=== PATIENT | female | born 1940 | race Caucasian/White ===

== ENCOUNTER → 2018-09-19 10:16 | Outpatient (CLI) | payer MEDICARE, SELFPAY ==
[2018-09-19 11:06] LABS: Hematocrit 42.7 % (36-46); Hemoglobin 14.3 g/dL (12.0-16.0); Mean Corpuscular HGB Conc 33.4 % (30-36); Mean Corpuscular Volume 92.7 fL (80-100); Platelet Count 254 X10^3/uL (150-400); Red Blood Cell Count 4.61 X10^6/uL (4.0-5.2); Red Cell Distribution Width 13.2 % (11.6-14.8); White Blood Cell Count 5.8 X10^3/uL (4.5-11.0)
[2018-09-19 11:52] LABS: Alanine Aminotransferase 20 IU/L (9-52); Albumin 4.5 g/dL (3.5-5.0); Albumin Globulin Ratio 1.7 (1.0-2.8); Alkaline Phosphatase 85 U/L (38-126); Aspartate Aminotransferase 24 IU/L (14-36); BUN Creatinine Ratio 21.7 (6-22); Bilirubin Total 0.9 mg/dL (0.2-1.3); Blood Urea Nitrogen 13 mg/dL (7-17); Calcium 9.6 mg/dL (8.4-10.2); Carbon Dioxide 24 mmol/L (22-32); Chloride 107 mmol/L (98-107); Cholesterol 219 mg/dL (140-199); Estimated Glomerular Filt Rate > 60.0 mL/min (>60); Globulin 2.6 g/dL (1.7-4.1); Glucose 108 mg/dL (80-110); HDL Cholesterol 72 mg/dL (40-60); HEMOLYSIS < 15 (0-50); LDL Cholesterol Calculated 126 mg/dL (<100); Potassium 4.1 mmol/L (3.4-5.1); Sodium 141 mmol/L (137-145); Total Protein 7.1 g/dL (6.3-8.2); Triglycerides 105 mg/dL (35-150)
[2018-09-19 15:57] LABS: Creatinine Urine Random 108.6 mg/dL
[2018-09-19 16:01] LABS: Microalbumi Creatinin Ratio Ur 5.5 ug/mg CR (<30); Microalbumin Urine Random 0.6 mg/dL (0-1.6)
== END ==
PROVIDERS: PCP Nurse Practitioner Family; Visit Provider Nurse Practitioner Family
DX: E78.00 Pure hypercholesterolemia, unspecified (principal); I10 Essential (primary) hypertension
CPT/HCPCS: 36415; 80053; 80061; 82043; 82570; 85027

== ENCOUNTER 2018-10-27 13:39 | Outpatient (RCR) | payer MEDICARE, SELFPAY ==
--- NOTE | 2018-10-27 16:45 | PT.OIE ---
Current Diagnoses Cystocele, unspecified (10/27/18) Uterovaginal prolapse, unspecified (10/27/18) Visit Care Team Role Provider Type SADIQ Mcgarry Attending Provider Advanced Sound Assistant Primary Care Provider Specialty: Family Practice Address: [address] [place] [address], [id number] Email: [email or web address] Physical Therapy Initial Evaluation PT-OP-A Visit Information Start: 10/27/18 07:26 Freq: Status: Active Protocol: Document 10/27/18 13:45 AMB (Rec: 10/30/18 07:23 AMB [email or web address]) Out-Patient Physical Therapy Visit Information Visit Information Visit Type Initial Evaluation Visit Start Time 13:45 Visit Stop Time 14:30 Total Visit Minutes 45 Visit Number 1 PT-OP-B Current Condition Start: 10/27/18 07:26 Freq: Status: Active Protocol: Document 10/27/18 13:45 AMB (Rec: 10/30/18 07:31 AMB [email or web address]) Current Condition History of Current Condition Onset Date 1 year ago Current Complaints pelvic heaviness History of Current Condition Tena reports 2 vaginal births with episiotomies, but denies symptoms around that time. Symptoms started after extensive 6 months of coughing . Does report rare urinary leak with supine to sit, but this is not especially bothersome. More bothersome is the feeling that something is falling out. Treatment Goals Patient/Caregiver Goals Decrease falling out feeling Prior Functional Status Baseline Function- ADL's Independent Baseline Function- Mobility Independent Current Functional Impairments (Reported) Functional Limitations- ADL's feeling of falling out especially worse after extended standing Personal Factors Other Personal Factors That May Effect hypertension Therapy/Recovery PT-OP-C Subjective Start: 10/27/18 07:26 Freq: Status: Active Protocol: Document 10/27/18 13:45 AMB (Rec: 10/31/18 16:44 AMB [email or web address]) Patient Questionnaires Pelvic Pain and Urgency/Frequency Patient Symptom Scale Pelvic Pain Score 6 PT-OP-I Pelvic Floor Start: 10/27/18 07:26 Freq: Status: Active Protocol: Document 10/27/18 13:45 AMB (Rec: 10/30/18 07:28 AMB [email or web address]) Pelvic Floor Assessment Urine Pelvic Floor Surgery No Urinary Symptoms Prolapse,Falling Out Feeling/ Heavy Leakage Size Small Other Leakage Causes supine to sit - rare per pt Nocturia 1 Bowel Bowel Surgery No Pelvic Clock Pelvic Clock 12-3 Atrophy Pelvic Clock 9-12 Atrophy Prolapse Cystocele Grade 2 Perineal Descent Resting Absent Bearing Present Contraction Ability Voluntary Contraction Weak Voluntary Relaxation Weak Manual Muscle Testing Left 1 Manual Muscle Testing Right 1 Manual Muscle Testing Anterior 1 Manual Muscle Testing Posterior 1 Muscle Endurance (Seconds) 3 Number of Quick Contractions In 10 3 Seconds Comments Pelvic Floor Comments Pt needed extensive cueing to perform pelvic floor contraction and did tend to compensate with breath hold, gluteals and abs. PT-OP-T Assessment and Plan Start: 10/27/18 07:26 Freq: Status: Active Protocol: Document 10/27/18 13:45 AMB (Rec: 10/31/18 16:44 AMB [email or web address]) Physical Therapy Assessment Rehab Potential Rehabilitation Potential Good Evaluation Complexity Number of Personal Factors/Comorbidities 1-2 Number of Body Systems Impaired 1-2 Clinical Presentation at Evaluation Stable Impairments Impairments Functional Activities Goals Two Impairment HEP Short Term Goal (STG) Tena will be independent with a exercise program for her prolapse. STG Duration 4 weeks One Impairment continence Short Term Goal (STG) Tena will be able to move from supine to sitting without leaking. STG Duration 4 weeks Assistant Auto Center Manager Goal (LTG) Tena will be able to go through her day without needing to splint with toilet paper. LTG Duration 8 weeks Assessment Summary Assessment Pt is presenting with GrII prolapse and significant weakness at the pelvic floor. She reports intermittent urinary leaking especially with supine to stand. She will benefit from PT to instruct her in a program so that she is able to contract her pelvic floor and reduce the abdominal pressure to reduce her symptoms of prolapse. Physical Therapy Plan Frequency and Duration Frequency of Treatment 1x/Week Duration of Treatment 8 weeks Plan of Care Start Date 10/27/18 Plan of Care End Date 12/15/18 Therapeutic Interventions Therapeutic Interventions Home Exercise Program,Manual Therapy,Neuromuscular Re- education,Self-Care/Home Management,Therapeutic Activities,Therapeutic Exercises Modalities Biofeedback,Electric Stimulation Next Visit Focus/Plan Next Note Type Treatment Note Next Visit Plan sEMG and NMES as needed, instruct in HEP
--- NOTE | 2018-10-27 16:46 | PT.OPPOC ---
Current Diagnoses Cystocele, unspecified (10/27/18) Uterovaginal prolapse, unspecified (10/27/18) Visit Care Team Role Provider Type SADIQ Mcgarry Attending Provider Advanced Shoe Stitcher Primary Care Provider Specialty: Family Practice Address: [address] [place] [address], [id number] Email: [email or web address] Plan Of Care PT-OP-T Assessment and Plan Start: 10/27/18 07:26 Freq: Status: Active Protocol: Document 10/27/18 13:45 AMB (Rec: 10/31/18 16:44 AMB [email or web address]) Physical Therapy Assessment Rehab Potential Rehabilitation Potential Good Evaluation Complexity Number of Personal Factors/Comorbidities 1-2 Number of Body Systems Impaired 1-2 Clinical Presentation at Evaluation Stable Impairments Impairments Functional Activities Goals Two Impairment HEP Short Term Goal (STG) Tena will be independent with a exercise program for her prolapse. STG Duration 4 weeks One Impairment continence Short Term Goal (STG) Tena will be able to move from supine to sitting without leaking. STG Duration 4 weeks Shelter Goal (LTG) Tena will be able to go through her day without needing to splint with toilet paper. LTG Duration 8 weeks Assessment Summary Assessment Pt is presenting with GrII prolapse and signficant weakness at the pelvic floor. She reports intermittent urinary leaking especially with supine to stand. She will benefit from PT to instruct her in a program so that she is able to contract her pelvic floor and reduce the abdominal pressure to reduce her symptoms of prolapse. Physical Therapy Plan Frequency and Duration Frequency of Treatment 1x/Week Duration of Treatment 8 weeks Plan of Care Start Date 10/27/18 Plan of Care End Date 12/15/18 Therapeutic Interventions Therapeutic Interventions Home Exercise Program,Manual Therapy,Neuromuscular Re- education,Self-Care/Home Management,Therapeutic Activities,Therapeutic Exercises Modalities Biofeedback,Electric Stimulation Next Visit Focus/Plan Next Note Type Treatment Note Next Visit Plan sEMG and NMES as needed, instruct in HEP Plan of Care Dates Plan of Care Start Date 10/27/18 Plan of Care End Date 12/15/18 Please Sign and Return: I have reviewed this Plan of Care and certify that the skilled therapy services above are required to meet the patient?s needs. Physician Signature Date Printed Name and Credentials Clinical Instructor Signature Printed Name and Credentials
--- NOTE | 2019-01-01 08:07 | PT.OPDS ---
Current Diagnoses Uterovaginal prolapse, unspecified (10/27/18) Visit Care Team Role Provider Type SADIQ Mcgarry Attending Provider Advanced Tunnel Mucker Primary Care Provider Specialty: Family Practice Address: [address] [place] [address], [facility] Email: [email or web address] Visit Number Visit Number 1 Discharge Summary PT-OP-B Current Condition Start: 10/27/18 07:26 Freq: Status: Active Protocol: Document 10/27/18 13:45 AMB (Rec: 10/30/18 07:31 AMB [email or web address]) Current Condition History of Current Condition Onset Date 1 year ago Current Complaints pelvic heaviness History of Current Condition Tena reports 2 vaginal births with episiotomies, but denies symptoms around that time. Symptoms started after extensive 6 months of coughing . Does report rare urinary leak with supine to sit, but this is not especially bothersome. More bothersome is the feeling that something is falling out. Treatment Goals Patient/Caregiver Goals Decrease falling out feeling Prior Functional Status Baseline Function- ADL's Independent Baseline Function- Mobility Independent Current Functional Impairments (Reported) Functional Limitations- ADL's feeling of falling out especially worse after extended standing Personal Factors Other Personal Factors That May Effect hypertension Therapy/Recovery PT-OP-C Subjective Start: 10/27/18 07:26 Freq: Status: Active Protocol: Document 10/27/18 13:45 AMB (Rec: 10/31/18 16:44 AMB [email or web address]) Patient Questionnaires Pelvic Pain and Urgency/Frequency Patient Symptom Scale Pelvic Pain Score 6 PT-OP-I Pelvic Floor Start: 10/27/18 07:26 Freq: Status: Active Protocol: Document 10/27/18 13:45 AMB (Rec: 10/30/18 07:28 AMB [email or web address]) Pelvic Floor Assessment Urine Pelvic Floor Surgery No Urinary Symptoms Prolapse,Falling Out Feeling/ Heavy Leakage Size Small Other Leakage Causes supine to sit - rare per pt Nocturia 1 Bowel Bowel Surgery No Pelvic Clock Pelvic Clock 12-3 Atrophy Pelvic Clock 9-12 Atrophy Prolapse Cystocele Grade 2 Perineal Descent Resting Absent Bearing Present Contraction Ability Voluntary Contraction Weak Voluntary Relaxation Weak Manual Muscle Testing Left 1 Manual Muscle Testing Right 1 Manual Muscle Testing Anterior 1 Manual Muscle Testing Posterior 1 Muscle Endurance (Seconds) 3 Number of Quick Contractions In 10 3 Seconds Comments Pelvic Floor Comments Pt needed extensive cueing to perform pelvic floor contraction and did tend to compensate with breath hold, gluteals and abs. PT-OP-T Assessment and Plan Start: 10/27/18 07:26 Freq: Status: Active Protocol: Document 01/01/19 08:04 AMB (Rec: 01/01/19 08:06 AMB [email or web address]) Physical Therapy Assessment Assessment Summary Assessment Tena attended her initial evaluation and has not returned since. She is therefore discharged, please see initial evaluation for all information. Physical Therapy Plan Discharge Physical Therapy Discharge Reasons No Longer Attending PT
== END 2018-10-27 14:39 ==
LOC: PHYS 13:39
PROVIDERS: PCP Nurse Practitioner Family; Visit Provider Nurse Practitioner Family
DX: N81.4 Uterovaginal prolapse, unspecified (principal)
CPT/HCPCS: 97161

== ENCOUNTER → 2020-04-17 11:58 | Outpatient (CLI) | payer OTHER, SELFPAY ==
[2020-04-17 12:31] LABS: Hematocrit 44.6 % (36-46); Hemoglobin 14.7 g/dL (12.0-16.0); Mean Corpuscular Hemoglobin 30.5 PG (26-34); Mean Corpuscular Volume 92.5 fL (80-100); Platelet Count 256 X10^3/uL (150-400); Red Blood Cell Count 4.82 X10^6/uL (4.0-5.2); Red Cell Distribution Width 13.5 % (11.6-14.8); White Blood Cell Count 6.3 X10^3/uL (4.5-11.0)
[2020-04-17 12:57] LABS: Alanine Aminotransferase 15 IU/L (<35); Albumin 4.3 g/dL (3.5-5.0); Albumin Globulin Ratio 1.7 (1.0-2.8); Alkaline Phosphatase 76 U/L (38-126); Aspartate Aminotransferase 24 IU/L (14-36); BUN Creatinine Ratio 15.9 (6-22); Bilirubin Total 0.8 mg/dL (0.2-1.3); Blood Urea Nitrogen 11 mg/dL (7-17); Calcium 9.6 mg/dL (8.4-10.2); Carbon Dioxide 26 mmol/L (22-32); Chloride 107 mmol/L (98-107); Cholesterol 209 mg/dL (140-199); Estimated Glomerular Filt Rate > 60.0 mL/min (>60); Globulin 2.6 g/dL (1.7-4.1); Glucose 125 mg/dL (80-110); HDL Cholesterol 68 mg/dL (40-60); HEMOLYSIS < 15 (0-50); LDL Cholesterol Calculated 117 mg/dL (<100); Sodium 140 mmol/L (137-145); Total Protein 6.9 g/dL (6.3-8.2); Triglycerides 120 mg/dL (35-150)
== END ==
PROVIDERS: PCP Nurse Practitioner Family; Referring Provider Nurse Practitioner Family; Visit Provider Nurse Practitioner Family
DX: E78.00 Pure hypercholesterolemia, unspecified (principal); I10 Essential (primary) hypertension
CPT/HCPCS: 36415; 80053; 80061; 85027

== ENCOUNTER → 2020-04-29 12:30 | Outpatient (CLI) | payer OTHER, SELFPAY ==
[2020-04-29 14:30] LABS: Hemoglobin A1C% w Est Avg Glu 5.6 % (4.0-6.0)
== END ==
PROVIDERS: PCP Nurse Practitioner Family; Referring Provider Nurse Practitioner Family; Visit Provider Nurse Practitioner Family
DX: R73.09 Other abnormal glucose (principal)
CPT/HCPCS: 36415; 83036

== ENCOUNTER → 2021-07-15 15:01 | Outpatient (CLI) | payer OTHER, SELFPAY ==
--- NOTE | 2021-07-15 15:10 | DI.RAD.S_ITS ---
PROCEDURE: XR FOOT LT MIN 3V INDICATIONS: swelling ankle TECHNIQUE: 3 views of the foot were acquired. COMPARISON: None. FINDINGS: Bones: No acute fractures or dislocations. No suspicious bony lesions. Old 5th metatarsal neck fracture. Mild degenerative joint disease at the 1st metatarsophalangeal joint and multiple interphalangeal joints. Osteopenia. Soft tissues: No tibiotalar joint effusion. Achilles tendon appears normal. IMPRESSION: 1. No acute abnormalities. 2. Old 5th metatarsal neck fracture. 3. Mild degenerative joint disease. 4. Osteopenia. Dictated by: Julio C Gonzales M.D. on 07/15/2021 at 16:44 Approved by: Julio C Gonzales M.D. on 07/15/2021 at 16:46
--- NOTE | 2021-07-15 15:10 | DI.RAD.S_ITS ---
PROCEDURE: XR ANKLE LT MIN 3V INDICATIONS: swelling ankle TECHNIQUE: 3 views of the ankle were acquired. COMPARISON: None. FINDINGS: Bones: No fractures or dislocations. Ankle mortise is normally aligned. No suspicious bony lesions. Soft tissues: No tibiotalar joint effusion. Achilles tendon appears normal. IMPRESSION: No evidence acute bony abnormality of the left ankle. If clinical suspicion and/or symptoms persist, further assessment with repeat plain films, or advanced imaging (e.g., CT, MRI, or bone scan) may be helpful for further assessment. Dictated by: Brian Royal M.D. on 07/15/2021 at 16:22 Approved by: Brian Royal M.D. on 07/15/2021 at 16:26
== END ==
PROVIDERS: PCP Nurse Practitioner Family; Referring Provider Physician Assistant; Visit Provider Physician Assistant
DX: M19.072 Primary osteoarthritis, left ankle and foot (principal); M85.872 Other specified disorders of bone density and structure, left ankle and foot; M25.472 Effusion, left ankle; S90.30XA Contusion of unspecified foot, initial encounter
CPT/HCPCS: 73610; 73630

== ENCOUNTER 2021-07-20 00:05 | Emergency (ER) | payer OTHER, SELFPAY ==
[2021-07-20] VITALS (15 sets, daily range): BP systolic 162–246; BP diastolic 74–112; PULSE 75–119; RESP 16–32; TEMP 36.7; O2SAT 97–99
--- NOTE | 2021-07-20 00:15 | DI.RAD.S_ITS ---
PROCEDURE: XR CHEST 1V INDICATIONS: chest pain TECHNIQUE: One view of the chest was acquired. COMPARISON: [facility], , CHEST 1 VIEW, 02/05/2017, 16:18. FINDINGS: Surgical changes and devices: None. Lungs and pleura: Lungs are clear. No pleural effusions or pneumothorax. Low lung volumes accentuate pulmonary interstitium and heart size. Mediastinum: Mediastinal contours appear normal. Heart size is normal. Bones and chest wall: No suspicious bony lesions. Overlying soft tissues appear unremarkable. IMPRESSION: No acute cardiopulmonary findings Approved by: Jordy Hicks M.D. on 07/20/2021 at 0:15
--- NOTE | 2021-07-20 00:24 | PC.NURSE ---
Pt reports dizziness with her HTN. Took 2 doses of 2.5mg of amlodipine EDUCATIONAL ADVISOR to attempt to lower her BP at home
[2021-07-20 00:29] LABS: Add Manual Diff / Slide Review NO; Basophils Absolute Auto 0 /uL (0-100); Basophils Percent Auto 0.4 % (0-2); Eosinophils Absolute Auto 100 /uL (0-450); Eosinophils Percent Auto 1.9 % (2-4); Hematocrit 45.1 % (36-46); Lymphocytes Absolute Auto 3000 /uL (1100-4500); Lymphocytes Percent Auto 38.5 % (25-40); Mean Corpuscular HGB Conc 33.3 % (30-36); Mean Corpuscular Hemoglobin 30.6 PG (26-34); Monocytes Absolute Auto 700 /uL (0-900); Monocytes Percent Auto 9.2 % (3-14); Neutrophils Absolute Auto 3900 /uL (1500-7000); Platelet Count 247 X10^3/uL (150-400); Red Cell Distribution Width 13.5 % (11.6-14.8); White Blood Cell Count 7.8 X10^3/uL (4.5-11.0)
--- NOTE | 2021-07-20 00:31 | ED_ITS ---
HPI - General Adult General Chief complaint: Hypertension Stated complaint: high blood pressure Time Seen by Provider: 07/20/21 00:11 Source: patient Mode of arrival: Ambulatory Limitations: no limitations History of Present Illness HPI narrative: Patient is a 80-year-old female. History of hypertension. Is on amlodipine and losartan is here for evaluation of high blood pressure. She states she takes her blood pressure multiple times a day. At noon today she took her blood pressure and the systolic was in the 160s. States that normally she is in the 130s. She has taken her blood pressure medicines today. She stated that she took a dose of amlodipine and losartan approximately 30 minutes prior to arrival here in the ER. She denies chest pain. No shortness of breath. She does have a history of a pulmonary embolism. Denies any headaches. Does feel somewhat foggy in her head. No balance issues. She contacted her primary doctor earlier today after the elevated blood pressure at noon and was told that if her systolic blood pressure was greater than 180 she should come to the emergency department for evaluation. Related Data Previous Rx's Medication Instructions Recorded amlodipine 5 mg tablet 5 mg PO DAILY #90 tab 05/27/21 aspirin 81 mg tablet,delayed 81 mg PO DAILY #90 tab 05/27/21 release losartan 25 mg tablet 25 mg PO BID #270 tab 05/27/21 vitamin B complex (B 1 tab PO DAILY #90 tab 05/27/21 Complex-Vitamin B12) Allergies Allergy/AdvReac Type Severity Reaction Status Date / Time lisinopril Allergy Severe Coughing Verified 04/29/20 11:58 Penicillins [PENICILLINS] Allergy Mild RASH Unverified 04/29/20 11:58 Review of Systems Constitutional Constitutional: Denies headache(s) Eyes Eyes: Reports system reviewed and no additional complaints, except as documented ENT Ears, Nose, Mouth, and Throat: Denies headache(s) Cardiovascular Cardiovascular: Reports system reviewed and no additional complaints, except as documented Respiratory Respiratory: Reports system reviewed and no additional complaints, except as documented Gastrointestinal Gastrointestinal: Reports system reviewed and no additional complaints, except as documented Musculoskeletal Musculoskeletal: Reports system reviewed and no additional complaints, except as documented Integumentary/Breasts Skin/Breast: Reports system reviewed and no additional complaints, except as d ocumented Neurologic Neurologic: Denies headache(s) Hematologic/Lymphatic On Anticoagulants: No Patient History Medical History Elevated fasting blood sugar (04/2020) Right bundle branch block Family History Child Dysautonomia Child Hirschsprung's disease Grandmother Stroke Mother Stroke Social History Smoking Status: Never smoker second hand exposure: No alcohol intake: current substance use type: does not use Smoking Status: Never smoker Exam Initial Vital Signs Initial Vital Signs: Vital Signs Pulse Rate 119 H 07/20/21 00:12 Blood Pressure 246/112 H 07/20/21 00:12 Pulse Oximetry 97 07/20/21 00:12 Const General: cooperative, comfortable and well developed HENMT Head: normal to inspection and normocephalic Resp Effort & Inspection: normal respiratory effort Auscultation: clear to auscultation bilaterally Cardio Rate: regular rate Rhythm: regular rhythm GI Inspection: normal to inspection Skin Other: Bruising left lower extremity in left foot for which she was evaluated for a couple days ago. Neuro General: patient alert, patient awake and moves all extremities Extrem Other: No pitting edema noted Psych Appearance: grossly normal and well kempt Course Orders Ordered: ED Orders 07/20/21 00:15 XR chest 1V Stat EKG-12 Lead Stat 07/20/21 00:19 Complete Blood Count AUTO DIFF Stat Comprehensive Metabolic Panel Stat Lipase Stat Magnesium Stat Troponin & CK Cardiac Panel Stat 07/20/21 02:28 Troponin I Stat Discontinued Medications Hydralazine HCl (Hydralazine 20 Mg/Ml Vial) 5 mg IV NOW ONE Stop: 07/20/21 01:28 Last Admin: 07/20/21 01:31 Dose: 5 mg Documented by: ASHLEIGH Vital Signs Vital signs: Vital Signs - 8 hr 07/20/21 00:12 07/20/21 00:15 07/20/21 00:29 Temperature 98.1 F Pulse Rate 119 H 114 H 97 H Respiratory Rate 22 19 Blood Pressure 246/112 H 246/112 H 226/101 H Pulse Oximetry 97 97 98 07/20/21 00:30 07/20/21 01:06 07/20/21 01:23 Temperature Pulse Rate 95 H 88 83 Respiratory Rate 17 20 Blood Pressure 197/88 H Pulse Oximetry 99 97 98 07/20/21 01:30 07/20/21 01:31 07/20/21 01:34 Temperature Pulse Rate 79 82 87 Respiratory Rate 23 27 H Blood Pressure 188/84 H 188/84 H Pulse Oximetry 97 98 07/20/21 01:45 07/20/21 01:46 07/20/21 02:00 Temperature Pulse Rate 79 75 Respiratory Rate 16 32 H Blood Pressure 168/79 H 168/79 H 162/74 H Pulse Oximetry 97 97 07/20/21 02:30 07/20/21 02:32 07/20/21 03:00 Temperature Pulse Rate 81 77 79 Respiratory Rate 20 23 18 Blood Pressure 171/85 H 178/86 H Pulse Oximetry 97 97 97 Medical Decision Making Medical Records Medical records reviewed: Yes I reviewed the patient's medical records. Lab Data Lab results reviewed: Yes I reviewed the patient's lab results. Result diagrams: 07/20/21 00:19 07/20/21 00:19 Labs: Lab Results 07/20/21 07/20/21 07/20/21 Range/Units 00:19 00:19 02:28 WBC 7.8 (4.5-11.0) X10^3/uL RBC 4.90 (4.0-5.2) X10^6/uL Hgb 15.0 (12.0-16.0) g/dL Hct 45.1 (36-46) % MCV 92.0 (80-100) fL MCH 30.6 (26-34) PG MCHC 33.3 (30-36) % RDW 13.5 (11.6-14.8) % Plt Count 247 (150-400) X10^3/uL Neut % (Auto) 50.0 (50-75) % Lymph % (Auto) 38.5 (25-40) % Prairie % (Auto) 9.2 (3-14) % Eos % (Auto) 1.9 L (2-4) % Baso % (Auto) 0.4 (0-2) % Neut # (Auto) 3900 (8548-0278) /uL Lymph # (Auto) 3000 (0321-3586) /uL [place] # (Auto) 700 (0-900) /uL Eos # (Auto) 100 (0-450) /uL Baso # (Auto) 0 (0-100) /uL Sodium 140 (137-145) mmol/L Potassium 3.8 (3.4-5.1) mmol/L Chloride 104 (98-107) mmol/L Carbon Dioxide 24 (22-32) mmol/L BUN 15 (7-17) mg/dL Creatinine 0.71 (0.52-1.04) mg/dL Estimated GFR > 60 (>60) mL/min BUN/Creatinine Ratio 21.1 (6-22) Glucose 127 H (80-110) mg/dL Calcium 9.4 (8.4-10.2) mg/dL Magnesium 2.2 (1.6-2.3) mg/dL Total Bilirubin 0.6 (0.2-1.3) mg/dL AST 30 (14-36) IU/L ALT 16 (<35) IU/L Alkaline Phosphatase 83 (38-126) U/L Total Creatine Kinase 55 (30-135) U/L CK-MB (CK-2) TNP CK-MB (CK-2) Rel Index TNP Troponin I < 0.012 < 0.012 (0.01-0.034) ng/mL Total Protein 8.0 (6.3-8.2) g/dL Albumin 4.9 (3.5-5.0) g/dL Globulin 3.1 (1.7-4.1) g/dL Albumin/Globulin Ratio 1.6 (1.0-2.8) Lipase 105 (23-300) U/L Imaging Data Chest x-ray: Radiologist's Impression: [address] [address] XRay Report Signed Patient: Tena Abdi MR#: [id number] : 1940 Acct:[id number] Age/Sex: 80 / F Date of Service: 07/20/21 Loc: ED Accession Number: [id number] ?? Procedure: XR chest 1V Ordering Provider: Bang Salazar D.O. PROCEDURE:? XR CHEST 1V ? INDICATIONS:? chest pain ? TECHNIQUE:? One view of the chest was acquired.? ? COMPARISON:? [facility], , CHEST 1 VIEW, 02/05/2017, 16:18. ? FINDINGS:? ? Surgical changes and devices:? None.? ? Lungs and pleura:? Lungs are clear.? No pleural effusions or pneumothorax.? Low lung volumes accentuate pulmonary interstitium and heart size. ? Mediastinum:? Mediastinal contours appear normal.? Heart size is normal.? ? Bones and chest wall:? No suspicious bony lesions.? Overlying soft tissues appear unremarkable.? ? IMPRESSION:? No acute cardiopulmonary findings ? ? ? Approved by: Jordy Hicks M.D. on 07/20/2021 at 0:15? ECG Data Attestation: I personally reviewed and interpreted this ECG as follows: Prior ECG tracings: available for review Interpretation: Sinus rhythm Occasional PAC Ventricular rate [address] No [address] T wave changes Comparison EKG dated 04/08/2016 Inverted T-waves V2 and V3 that are not apparent on today's EKG are noted on this 1. Otherwise unchanged MDM Narrative Medical decision making narrative: No chest pain. Unchanged EKG from 2017. Troponins negative x2. Kidney funct ions unremarkable. Chest x-ray is unremarkable. Patient's blood pressure improved both with time here in the emergency department and also an extra dose of hydralazine. Patient not clinically in heart failure. Low suspicion for intracranial hemorrhage based on history and physical exam. Not in acute renal failure. Patient has a follow-up with Cardiology already scheduled for the middle of next month. No indication for admission to the hospital or further lowering of her blood pressure. Was instructed to continue to take her blood pressure at home and continue to take all of her medication at home. She was given return precautions. She expressed understanding and agreement. Discharge Plan Departure Patient Disposition: Home Clinical Impression: Hypertension Instructions: DI for High Blood Pressure Activity Restrictions/Additional Instructions: Continue to take all of your medications as directed. Will scheduled medical appointments. Return to the emergency department for any new or worsening symptoms. Prescriptions: No Action aspirin 81 mg tablet,delayed release (DR/EC) 81 mg PO DAILY Qty: 90 0RF vitamin B complex [B Complex-Vitamin B12] Tablet 1 tab PO DAILY Qty: 90 0RF amlodipine 5 mg tablet 5 mg PO DAILY Qty: 90 0RF losartan 25 mg tablet 25 mg PO BID Qty: 270 1RF Rx Instructions: Take 50mg in the morning, 25mg at night Referrals: Mike Bocanegra ARNP [Primary Care Provider] -
[2021-07-20 00:45] LABS: Alanine Aminotransferase 16 IU/L (<35); Albumin 4.9 g/dL (3.5-5.0); Albumin Globulin Ratio 1.6 (1.0-2.8); Alkaline Phosphatase 83 U/L (38-126); Aspartate Aminotransferase 30 IU/L (14-36); BUN Creatinine Ratio 21.1 (6-22); Bilirubin Total 0.6 mg/dL (0.2-1.3); Blood Urea Nitrogen 15 mg/dL (7-17); Calcium 9.4 mg/dL (8.4-10.2); Carbon Dioxide 24 mmol/L (22-32); Chloride 104 mmol/L (98-107); Creatine Kinase 55 U/L (30-135); Estimated Glomerular Filt Rate > 60 mL/min (>60); Globulin 3.1 g/dL (1.7-4.1); Glucose 127 mg/dL (80-110); HEMOLYSIS 24 (0-50); Lipase 105 U/L (23-300); Magnesium 2.2 mg/dL (1.6-2.3); Potassium 3.8 mmol/L (3.4-5.1); Sodium 140 mmol/L (137-145)
[2021-07-20 00:57] LABS: Troponin I < 0.012 ng/mL (0.01-0.034)
[2021-07-20] MEDS: HYDRALAZINE 20 MG/ML VIAL 5 MG IV (01:31)
[2021-07-20 03:04] LABS: Troponin I < 0.012 ng/mL (0.01-0.034)
== END 2021-07-20 03:20 | disposition home or self-care (01) ==
PROVIDERS: Emergency Provider Emergency Medicine; PCP Nurse Practitioner Family
DX: I10 Essential (primary) hypertension (principal); R07.9 Chest pain, unspecified
CPT/HCPCS: 36415; 71045; 80053; 82550; 83690; 83735; 84484; 85025; 93005; 96374; 99284; J0360

== ENCOUNTER → 2022-08-04 10:17 | Outpatient (CLI) | payer MEDICARE, SELFPAY ==
[2022-08-04 12:09] LABS: Add Manual Diff / Slide Review NO; Basophils Absolute Auto 0 /uL (0-100); Basophils Percent Auto 0.7 % (0-2); Eosinophils Absolute Auto 100 /uL (0-450); Eosinophils Percent Auto 2.3 % (2-4); Hematocrit 42.7 % (36-46); Hemoglobin 14.5 g/dL (12.0-16.0); Lymphocytes Absolute Auto 1400 /uL (1100-4500); Lymphocytes Percent Auto 29.8 % (25-40); Mean Corpuscular Hemoglobin 30.8 PG (26-34); Mean Corpuscular Volume 90.5 fL (80-100); Monocytes Absolute Auto 400 /uL (0-900); Monocytes Percent Auto 9.5 % (3-14); Neutrophils Absolute Auto 2600 /uL (1500-7000); Neutrophils Percent Auto 57.7 % (50-75); Platelet Count 227 X10^3/uL (150-400); Red Blood Cell Count 4.71 X10^6/uL (4.0-5.2); Red Cell Distribution Width 13.3 % (11.6-14.8); White Blood Cell Count 4.5 X10^3/uL (4.5-11.0)
[2022-08-04 12:25] LABS: Alanine Aminotransferase 19 IU/L (<35); Albumin 4.1 g/dL (3.5-5.0); Albumin Globulin Ratio 1.9 (1.0-2.8); Alkaline Phosphatase 92 U/L (38-126); Aspartate Aminotransferase 25 IU/L (14-36); BUN Creatinine Ratio 22.2 (6-22); Bilirubin Total 0.5 mg/dL (0.2-1.3); Blood Urea Nitrogen 14 mg/dL (7-17); Carbon Dioxide 25 mmol/L (22-32); Chloride 108 mmol/L (98-107); Cholesterol 202 mg/dL (140-199); Estimated Glomerular Filt Rate > 60 mL/min (>60); Globulin 2.2 g/dL (1.7-4.1); Glucose 117 mg/dL (80-110); HDL Cholesterol 73 mg/dL (40-60); HEMOLYSIS < 15 (0-50); LDL Cholesterol Calculated 109 mg/dL (<100); Potassium 3.8 mmol/L (3.4-5.1); Sodium 139 mmol/L (137-145); Total Protein 6.3 g/dL (6.3-8.2); Triglycerides 101 mg/dL (35-150)
[2022-08-05 05:53] LABS: Labcorp Hemoglobin (Hb) A1c 5.3 % (4.8-5.6)
== END ==
PROVIDERS: PCP Nurse Practitioner; Referring Provider Nurse Practitioner; Visit Provider Nurse Practitioner
DX: E72.12 Methylenetetrahydrofolate reductase deficiency (principal); I10 Essential (primary) hypertension; R00.0 Tachycardia, unspecified; R73.01 Impaired fasting glucose
CPT/HCPCS: 36415; 80053; 80061; 83036; 85025

== ENCOUNTER → 2022-08-05 14:24 | Outpatient (CLI) | payer MEDICARE, SELFPAY ==
[2022-08-05 15:11] LABS: Creatinine Urine Random 56.2 mg/dL
[2022-08-05 15:29] LABS: Microalbumin Urine Random < 0.6 mg/dL (0-1.6)
== END ==
PROVIDERS: PCP Nurse Practitioner; Referring Provider Nurse Practitioner; Visit Provider Nurse Practitioner
DX: E72.12 Methylenetetrahydrofolate reductase deficiency (principal); I10 Essential (primary) hypertension; R00.0 Tachycardia, unspecified
CPT/HCPCS: 82043; 82570

== ENCOUNTER → 2023-01-05 12:26 | Outpatient (CLI) | payer MEDICARE, SELFPAY ==
[2023-01-05 13:28] LABS: Prothrombin Time 11.3 SECONDS (10.1-12.7)
[2023-01-05 13:30] LABS: PTT Partial Thromboplastin Tim 26 SECONDS (26-36)
[2023-01-05 14:27] LABS: Vitamin B12 933 pg/mL (239-931)
[2023-01-11 09:09] LABS: Vitamin B6 82.2 ug/L (3.4-65.2)
[2023-01-14 11:24] LABS: Vitamin B1 139.4 nmol/L (66.5-200.0)
[2023-01-14 22:08] LABS: Nicotinic Acid <5.0 ng/mL (0.0-5.0)
== END ==
PROVIDERS: PCP Nurse Practitioner; Referring Provider Nurse Practitioner; Visit Provider Nurse Practitioner
DX: E72.12 Methylenetetrahydrofolate reductase deficiency (principal); E53.9 Vitamin B deficiency, unspecified
CPT/HCPCS: 36415; 82607; 84207; 84425; 84591; 85610; 85730